=== PATIENT | male | born 1995 | race Native Hawaiian/Other Pacific Islander ===

== ENCOUNTER 2017-03-27 18:50 | Emergency (ER) | payer OTHER ==
[~2017-03-27] VITALS: Ht 172.7 cm; Wt 105.5 kg
[2017-03-27 19:08] VITALS: BP 137/75; PULSE 85; RESP 15; TEMP 98; O2SAT 99
[2017-03-27] MEDS ORDERED: FLUT1SPR5 EACH NARE (19:22)
[2017-03-27] MEDS ORDERED: AUGM875T3 PO (19:22)
--- NOTE | 2017-03-27 19:26 | PD ---
HPI Chief Complaint: ENT Complaint Time Seen by Provider: 19:22 Travel History International Travel<30 days: No Contact w/Intl Traveler<30days: No Traveled to known affect area: No History of Present Illness HPI 21-year-old male presents for evaluation of frontal headache, and sinus pressure , bilateral ear pressure and pain. He reports that symptoms started shortly after landing on an airplane from [place] 2 weeks ago. Symptoms have progressed since then which prompted evaluation. He also endorses sore throat over the past several days. Denies fevers, rash, cough. Denies drainage from the ears. No alleviating factors. He has no other complaints at this time. [facility] Past Medical History Medical History: Denies Significant Hx Diminished Hearing: No Influenza Vaccination: Yes ?: Not Past Surgical History Surgical History: No Previous Surgery Social History Alcohol Use: No Tobacco Use: Yes (1/2 ppd) Substance Use: No Allergies-Medications (Allergen,Severity, Reaction): Coded Allergies: No Known Allergies (Unverified , 03/27/17) Reported Meds & Prescriptions Reported Meds & Active Scripts Active Flonase Nasal [place] (Fluticasone Nasal [place]) 50 Mcg/Act [place] 100 Mcg EACH NARE BID 10 Days Augmentin (Amoxicillin-Clavulanate) 875-125 Mg Tab 1 Tab PO BID 10 Days Review of Systems HENT: Positive: Sore Throat, Earache, No: Ear Discharge Respiratory: No: Cough Neurologic: Positive: Headache Physical Exam Narrative GENERAL: Well-developed well-nourished male in no acute distress SKIN: Warm and dry. HEAD: Atraumatic. Normocephalic. EYES: Pupils equal and round. No scleral icterus. No injection or drainage. ENT: No nasal bleeding or discharge. Mucous membranes pink and moist. Bilaterally the tympanic membranes are intact with air-fluid levels. The left tympanic membranes is somewhat bulging and erythematous. There is oropharyngeal erythema without exudate. NECK: Trachea midline. No JVD. No lymphadenopathy. CARDIOVASCULAR: Regular rate and rhythm. No murmur appreciated. RESPIRATORY: No accessory muscle use. Clear to auscultation. Breath sounds equal bilaterally. Data Data Last Documented VS Vital Signs Date Time Temp Pulse Resp B/P (MAP) Pulse Ox O2 Delivery O2 Flow Rate FiO2 03/27/17 19:08 98.0 85 15 137/75 (95) 99 MDM Medical Decision Making Medical Screen Exam Complete: Yes Emergency Medical Condition: Yes Medical Record Reviewed: Yes Differential Diagnosis Eustachian tube dysfunction, otitis media, perforated tympanic membrane, mastoiditis, malignant otitis externa, pharyngitis, sinusitis Narrative Course Examination and history are consistent with left suppurative otitis media, pharyngitis and sinusitis. The patient is being discharged with Flonase and Augmentin prescriptions. Diagnosis Primary Impression: Left otitis media Qualified Codes: H66.002 - Acute suppurative otitis media without spontaneous rupture of ear drum, left ear Additional Impressions: Sinusitis Qualified Codes: J01.90 - Acute sinusitis, unspecified Pharyngitis Qualified Codes: J02.9 - Acute pharyngitis, unspecified Additional Instructions: Medication as prescribed. Use [id number] nasal decongestants. Stay well hydrated well-nourished. Return for any emergent medical conditions. Med/Other Pt SpecificInfo: Prescription(s) given Scripts Fluticasone Nasal [place] (Flonase Nasal [place]) 50 Mcg/Act [place] 100 MCG EACH NARE BID for Allergies for 10 Days, #1 BOTTLE 0 Refills Prov: Cheyenne Cole MD 03/27/17 Amoxicillin-Clavulanate (Augmentin) 875-125 Mg Tab 1 TAB PO BID for Infection for 10 Days, #20 TAB 0 Refills Prov: Cheyenne Cole MD 03/27/17 Disposition: 01 DISCHARGE HOME Condition: Stable Ralph Philip Mar 27, 2017 19:26
== END 2017-03-27 19:36 | disposition home or self-care (01) ==
LOC: PHEFT 18:50
DX: H66.002 Acute suppurative otitis media without spontaneous rupture of ear drum, left ear (principal); J01.90 Acute sinusitis, unspecified; J02.9 Acute pharyngitis, unspecified; F17.200 Nicotine dependence, unspecified, uncomplicated
CPT/HCPCS: 99283

== ENCOUNTER 2017-04-02 16:23 | Emergency (ER) | payer OTHER ==
[~2017-04-02] VITALS: Ht 172.7 cm; Wt 105.0 kg
[~2017-04-02 16:23] MED LIST: AUGM875T3 PO; FLUT1SPR5 EACH NARE
[2017-04-02] MEDS ORDERED: IOHEXOL 350 MG/ML 10 ML VIAL (for RAD DIAG) IVCONTRAST ONE (16:24)
[2017-04-02 16:35] VITALS: BP 125/69; PULSE 62; RESP 16; TEMP 98.7; O2SAT 99
[2017-04-02] MEDS ORDERED: SODIUM CHLORIDE 0.9% FLUSH 10 ML FLUSH IV FLUSH PRN (17:15)
--- NOTE | 2017-04-02 17:28 | PD ---
HPI Chief Complaint: Abdominal Pain Time Seen by Provider: 16:41 Travel History International Travel<30 days: No Contact w/Intl Traveler<30days: No Traveled to known affect area: No History of Present Illness HPI Patient is a 21-year-old male presents emergency department for evaluation of blood from his umbilicus for the past day. Patient relates a history that for the past year he has had intermittent stool from his umbilicus. He states this did not bother him except that when he found he was passing blood's morning. Denies any blood in the stool. Denies any nausea or vomiting denies any fever. He does endorse some periumbilical pain and irritation. States symptoms are moderate, constant over the past year. PFSH Past Medical History Medical History: Denies Significant Hx Diminished Hearing: No Immunizations Current: Yes Tetanus Vaccination: < 5 Years Influenza Vaccination: No Past Surgical History Surgical History: No Previous Surgery Social History Alcohol Use: No Tobacco Use: Yes (1/2 ppd) Substance Use: No Allergies-Medications (Allergen,Severity, Reaction): Coded Allergies: No Known Allergies (Unverified , 04/02/17) Reported Meds & Prescriptions Reported Meds & Active Scripts Active Flonase Nasal [place] (Fluticasone Nasal [place]) 50 Mcg/Act [place] 100 Mcg EACH NARE BID 10 Days Augmentin (Amoxicillin-Clavulanate) 875-125 Mg Tab 1 Tab PO BID 10 Days Review of Systems Except as stated in HPI: all other systems reviewed are Neg Physical Exam Narrative GENERAL: Well-developed well-nourished, no obvious distress. SKIN: Focused skin assessment warm/dry. HEAD: Atraumatic. Normocephalic. EYES: Pupils equal and round. No scleral icterus. No injection or drainage. ENT: No nasal bleeding or discharge. Mucous membranes pink and moist. NECK: Trachea midline. No JVD. CARDIOVASCULAR: Regular rate and rhythm. No murmur appreciated. RESPIRATORY: No accessory muscle use. Clear to auscultation. Breath sounds equal bilaterally. GASTROINTESTINAL: Abdomen soft, non-tender, nondistended. Hepatic and splenic margins not palpable. No rebound no percussive tenderness. There is some dried blood in the umbilicus and a singular clot which is about pea-sized. No foul-smelling discharge is appreciated. MUSCULOSKELETAL: No obvious deformities. No clubbing. No cyanosis. No edema. NEUROLOGICAL: Awake and alert. No obvious cranial nerve deficits. Motor grossly within normal limits. Normal speech. PSYCHIATRIC: Appropriate mood and affect; insight and judgment normal. Data Data Last Documented VS Vital Signs Date Time Temp Pulse Resp B/P (MAP) Pulse Ox O2 Delivery O2 Flow Rate FiO2 04/02/17 21:23 04/02/17 20:23 56 16 98 Room Air 04/02/17 16:35 98.7 Orders Orders Complete Blood Count With Diff (04/02/17 17:11) Comprehensive Metabolic Panel (04/02/17 17:11) Lactic Acid (04/02/17 17:11) Ct Abd/Pel W Iv Contrast(Rout) (04/02/17 17:11) Iv Access Insert/Monitor (04/02/17 17:11) Ecg Monitoring (04/02/17 17:11) Oximetry (04/02/17 17:11) Sodium Chloride 0.9% Flush (Ns Flush) (04/02/17 17:15) Oral Contrast - Adult (04/02/17 17:17) Diatrizoate Liq ( Gastroview Liq) (04/02/17 17:35) Ondansetron Inj (Zofran Inj) (04/02/17 19:00) Iohexol 350 Inj (Omnipaque 350 Inj) (04/02/17 16:24) Labs Laboratory Tests Test 04/02/17 17:20 White Blood Count 5.9 TH/MM3 Red Blood Count 5.43 MIL/MM3 Hemoglobin 13.8 GM/DL Hematocrit 43.6 % Mean Corpuscular Volume 80.3 FL Mean Corpuscular Hemoglobin 25.5 PG Mean Corpuscular Hemoglobin Concent 31.7 % Red Cell Distribution Width 13.4 % Platelet Count 225 TH/MM3 Mean Platelet Volume 10.5 FL Neutrophils (%) (Auto) 57.8 % Lymphocytes (%) (Auto) 27.1 % Monocytes (%) (Auto) 9.2 % Eosinophils (%) (Auto) 5.0 % Basophils (%) (Auto) 0.9 % Neutrophils # (Auto) 3.4 TH/MM3 Lymphocytes # (Auto) 1.6 TH/MM3 Monocytes # (Auto) 0.5 TH/MM3 Eosinophils # (Auto) 0.3 TH/MM3 Basophils # (Auto) 0.1 TH/MM3 CBC Comment DIFF FINAL Differential Comment Blood Urea Nitrogen 11 MG/DL Creatinine 0.70 MG/DL Random Glucose 90 MG/DL Total Protein 7.9 GM/DL Albumin 4.2 GM/DL Calcium Level 9.2 MG/DL Alkaline Phosphatase 67 U/L Aspartate Amino Transf (AST/SGOT) 18 U/L Alanine Aminotransferase (ALT/SGPT) 27 U/L Total Bilirubin 0.4 MG/DL Sodium Level 134 MEQ/L Potassium Level 3.7 MEQ/L Chloride Level 100 MEQ/L Carbon Dioxide Level 25.2 MEQ/L Anion Gap 9 MEQ/L Estimat Glomerular Filtration Rate 144 ML/MIN Lactic Acid Level 0.8 mmol/L MDM Medical Decision Making Medical Screen Exam Complete: Yes Emergency Medical Condition: Yes Differential Diagnosis Enterocutaneous fistula, umbilical duct cyst, cellulitis, Narrative Course Patient is 21-year-old male appears well, afebrile, benign abdomen. CAT scan with by mouth and IV contrast is been ordered. The patient was then handed off to Sheri Solorio PA-C at 1900 at the end of my shift. Have discussed if uncomplicated fistula can follow-up with general surgery and gastroenterology, if not consider skin infection and cover with antibiotics. If otherwise can discussed with the relieving physician. Mj Meredith MD Apr 02, 2017 17:28
[2017-04-02 17:33] LABS: AUTOMATED NEUTROPHIL # 3.4 TH/MM3 (1.8-7.7); BASOPHIL # 0.1 TH/MM3 (0-0.2); BASOPHIL % 0.9 % (0.0-2.0); EOSINOPHIL # 0.3 TH/MM3 (0-0.4); HEMATOCRIT 43.6 % (39.0-51.0); HEMO FLAGS DIFF FINAL; LYMPH % 27.1 % (9.0-44.0); LYMPHOCYTE # 1.6 TH/MM3 (1.0-4.8); MEAN CELL VOLUME 80.3 FL (80.0-100.0); MEAN CORPUSCULAR HEMOGLOBIN 25.5 PG (27.0-34.0); MEAN CORPUSCULAR HGB CONC 31.7 % (32.0-36.0); MONO % 9.2 % (0.0-8.0); NEUT % 57.8 % (16.0-70.0); PLATELET COUNT 225 TH/MM3 (150-450); RED BLOOD COUNT 5.43 MIL/MM3 (4.50-5.90); RED CELL DISTRIBUTION WIDTH 13.4 % (11.6-17.2); WHITE BLOOD COUNT 5.9 TH/MM3 (4.0-11.0)
[2017-04-02] MEDS ORDERED: DIATRIZOATE MEGLUM/DIATRIZOATE SOD 9 ML CUP ONE (17:35)
[2017-04-02 17:39] VITALS: O2SAT 97
[2017-04-02 18:25] LABS: CHLORIDE 100 MEQ/L (98-107); POTASSIUM 3.7 MEQ/L (3.5-5.1); SODIUM (NA) 134 MEQ/L (136-145)
[2017-04-02 18:28] LABS: ANION GAP 9 MEQ/L (5-15); BICARBONATE 25.2 MEQ/L (21.0-32.0)
[2017-04-02 18:29] LABS: BLOOD UREA NITROGEN 11 MG/DL (7-18)
[2017-04-02 18:31] LABS: ALT (GPT) 27 U/L (9-52)
[2017-04-02 18:32] LABS: AST (GOT) 18 U/L (15-39); GLOMERULAR FILTRATION RATE 144 ML/MIN (>89)
[2017-04-02 18:33] LABS: TOTAL BILIRUBIN ADULT 0.4 MG/DL (0.2-1.0)
[2017-04-02 18:35] LABS: ALKALINE PHOSPHATASE 67 U/L (45-117)
[2017-04-02] MEDS ORDERED: ONDANSETRON HCL 4 MG/2 ML VIAL IV PUSH ONE (19:00)
[2017-04-02 19:06] VITALS: BP 150/87; PULSE 58; RESP 18; O2SAT 100
[2017-04-02 20:23] VITALS: BP 139/82; PULSE 56; RESP 16; O2SAT 98
--- NOTE | 2017-04-02 20:38 | RADRPT ---
EXAM DATE/TIME: 04/02/2017 18:42 [facility] COMPARISON: No previous studies available for comparison. INDICATIONS : Abdominal pain for 2 days IV CONTRAST: 96 cc Omnipaque 350 (iohexol) IV ORAL CONTRAST: Prescribed oral contrast ingested. RADIATION DOSE: 16.96 CTDIvol (mGy) MEDICAL HISTORY : None SURGICAL HISTORY : None. ENCOUNTER: Initial ACUITY: 2 days PAIN SCALE: 8/10 LOCATION: medial umbillical pain TECHNIQUE: Volumetric scanning of the abdomen and pelvis was performed. Using automated exposure control and ad justment of the mA and/or kV according to patient size, radiation dose was kept as low as reasonably achievable to obtain optimal diagnostic quality images. DICOM format image data is available electro nically for review and comparison. FINDINGS: Lung bases are clear. Mild fatty liver. Spleen, adrenals, kidneys and pancreas unremarkable. No calci fied gallstones. No biliary ductal dilatation. There is a small fat containing umbilical hernia. No b owel obstruction no abnormal mural thickening of bowel identified. No acute bony abnormalities. CONCLUSION: 1. No acute findings within the abdomen and pelvis. Small fat containing umbilical hernia measuring a bout 1 cm. Mild fatty liver. Supa Montero MD on April 02, 2017 at 20:34 Board Certified Radiologist. This report was verified electronically.
--- NOTE | 2017-04-02 21:04 | PD ---
Physical Exam Date Seen by Provider: Apr 02, 2017 Time Seen by Provider: 21:03 Narrative Care of this patient was assumed by myself when Dr. Meredith's shift was over. Data Data Last Documented VS Vital Signs Date Time Temp Pulse Resp B/P (MAP) Pulse Ox O2 Delivery O2 Flow Rate FiO2 04/02/17 20:23 56 16 139/82 (101) 98 Room Air 04/02/17 16:35 98.7 Orders Orders Complete Blood Count With Diff (04/02/17 17:11) Comprehensive Metabolic Panel (04/02/17 17:11) Lactic Acid (04/02/17 17:11) Ct Abd/Pel W Iv Contrast(Rout) (04/02/17 17:11) Iv Access Insert/Monitor (04/02/17 17:11) Ecg Monitoring (04/02/17 17:11) Oximetry (04/02/17 17:11) Sodium Chloride 0.9% Flush (Ns Flush) (04/02/17 17:15) Oral Contrast - Adult (04/02/17 17:17) Diatrizoate Liq ( Gastrojosefina Liq) (04/02/17 17:35) Ondansetron Inj (Zofran Inj) (04/02/17 19:00) Iohexol 350 Inj (Omnipaque 350 Inj) (04/02/17 16:24) Labs Laboratory Tests Test 04/02/17 17:20 White Blood Count 5.9 TH/MM3 Red Blood Count 5.43 MIL/MM3 Hemoglobin 13.8 GM/DL Hematocrit 43.6 % Mean Corpuscular Volume 80.3 FL Mean Corpuscular Hemoglobin 25.5 PG Mean Corpuscular Hemoglobin Concent 31.7 % Red Cell Distribution Width 13.4 % Platelet Count 225 TH/MM3 Mean Platelet Volume 10.5 FL Neutrophils (%) (Auto) 57.8 % Lymphocytes (%) (Auto) 27.1 % Monocytes (%) (Auto) 9.2 % Eosinophils (%) (Auto) 5.0 % Basophils (%) (Auto) 0.9 % Neutrophils # (Auto) 3.4 TH/MM3 Lymphocytes # (Auto) 1.6 TH/MM3 Monocytes # (Auto) 0.5 TH/MM3 Eosinophils # (Auto) 0.3 TH/MM3 Basophils # (Auto) 0.1 TH/MM3 CBC Comment DIFF FINAL Differential Comment Blood Urea Nitrogen 11 MG/DL Creatinine 0.70 MG/DL Random Glucose 90 MG/DL Total Protein 7.9 GM/DL Albumin 4.2 GM/DL Calcium Level 9.2 MG/DL Alkaline Phosphatase 67 U/L Aspartate Amino Transf (AST/SGOT) 18 U/L Alanine Aminotransferase (ALT/SGPT) 27 U/L Total Bilirubin 0.4 MG/DL Sodium Level 134 MEQ/L Potassium Level 3.7 MEQ/L Chloride Level 100 MEQ/L Carbon Dioxide Level 25.2 MEQ/L Anion Gap 9 MEQ/L Estimat Glomerular Filtration Rate 144 ML/MIN Lactic Acid Level 0.8 mmol/L [facility] Supervised Visit with GADIEL: Yes Differential Diagnosis Differential diagnoses include but not limited to umbilical hernia, umbilical cyst, cellulitis Narrative Course Care of this patient was assumed by myself when Dr. Meredith's shift was over. Please see his documentation for further details. CAT scan of the abdomen shows no acute findings. A small umbilical hernia measuring 1 cm was noted. Based on patient's symptoms, clinical presentation, lab results, radiological results, vital sign review and physical exam it is not necessary to admit the patient to the hospital or keep the patient in the emergency department for further evaluation. Patient will be discharged home with instructions to follow -up with his primary care. Diagnosis Primary Impression: Umbilical hernia Qualified Codes: K42.9 - Umbilical hernia without obstruction or gangrene Referrals: Primary Care Physician Patient Instructions: General Instructions, Umbilical Hernia (DC) Additional Instruction: Please return to emergency department if your symptoms return or worsen. Follow up with your primary care provider. Disposition: 01 DISCHARGE HOME Condition: Stable Sheri Lutz Apr 02, 2017 21:04
== END 2017-04-02 21:25 | disposition home or self-care (01) ==
LOC: PHEFT 16:23
DX: K42.9 Umbilical hernia without obstruction or gangrene (principal); F17.200 Nicotine dependence, unspecified, uncomplicated; K76.0 Fatty (change of) liver, not elsewhere classified
CPT/HCPCS: 74177; 80053; 83605; 85025; 99285; Q9963; Q9967